=== PATIENT | male | born 1965 | race Caucasian/White ===

== ENCOUNTER 2018-03-31 12:00 | Outpatient (RCR) | payer OTHER, SELFPAY ==
--- NOTE | 2018-03-19 08:49 | PT.OIE ---
Current Diagnoses Generalized abdominal pain (03/18/18) Provider Visit Care Team Role Provider Type Kermit Valle MD Attending Provider Physician Family Provider Primary Care Provider Specialty: Family Practice Address: [facility] [place], [address] Email: [email or web address] Physical Therapy Initial Evaluation PT-OP-A Visit Information Start: 03/18/18 09:13 Freq: Status: Active Protocol: Document 03/18/18 16:53 [facility] (Rec: 03/18/18 17:15 [facility] [email or web address]) Out-Patient Physical Therapy Visit Information Visit Information Visit Type Initial Evaluation Visit Start Time 13:00 Visit Stop Time 14:00 Total Visit Minutes 60 Visit Number PT-OP-B Current Condition Start: 03/18/18 09:13 Freq: Status: Active Protocol: Document 03/18/18 16:53 [facility] (Rec: 03/18/18 17:15 [facility] [email or web address]) Current Condition History of Current Condition Onset Date 3 months ago History of Current Condition Pt reports she was working at home on his hands and knees and stood up and got a sharp pain into L groin and had to rest for about 1 week. He started to get better, but then strained it again last week when he was off work and going up and down his speed boat ladder. Pt saw MD and MD said no hernia & just a muscle strain. Pt has hx of LBP for forever and cannot walk any long distance d/t back pain. Pt hs hx of R hip pain also and he reports his groin pain sometimes goes into his abdomen area by L hip flexor. Treatment Goals Patient/Caregiver Goals Return to work without pain, dec pain PT-OP-C Subjective Start: 03/18/18 09:13 Freq: Status: Active Protocol: Document 03/18/18 16:53 [facility] (Rec: 03/18/18 17:15 [facility] [email or web address]) Patient Questionnaires Lower Extremity Functional Scale LEFS Score 42 LEFS Impairment 40 to 59% Impaired (Score 32- 47) OP-PT Pain Assessment Location Left Groin Intensity 6 Scale Used Numeric (1 - 10) Description Sharp Throbbing Frequency Frequent Pain Duration relieves with stopping movement Pain Aggravating Factors Activity Lifting Other Pain Aggravating Factors twist when walking, push leg in, moving wrong way, in/out car Pain Alleviating Factors Heat Sitting PT-OP-E Functional Tests Start: 03/18/18 09:13 Freq: Status: Active Protocol: Document 03/18/18 16:53 [facility] (Rec: 03/18/18 17:15 [facility] [email or web address]) Functional Tests Squat Test Score no pain with squat PT-OP-F Manual Assessment Start: 03/18/18 09:13 Freq: Status: Active Protocol: Document 03/18/18 16:53 [facility] (Rec: 03/18/18 17:15 [facility] [email or web address]) Manual Assessments Soft Tissue Assessment Soft Tissue Mobility Assessment tigthness/tenderness in iliacus & adductors Joint Mobility Assessment Joint Mobility Assessment Pt is elevated R iliac crest & greater trochanter & PSIS is post PT-OP-J Posture/Palpation/Skin Start: 03/18/18 09:13 Freq: Status: Active Protocol: Document 03/18/18 16:53 [facility] (Rec: 03/18/18 17:15 [facility] [email or web address]) Posture Evaluation Vineet Postural Classification System Vineet Postural Classifications Anterior/Posterior PT-OP-K Range of Motion Start: 03/18/18 09:13 Freq: Status: Active Protocol: Document 03/18/18 16:53 [facility] (Rec: 03/18/18 17:15 [facility] [email or web address]) Hip Goniometric Range of Motion Hip Measured in Degrees Right Active Testing Position Supine Flexion w/Knee Flexed 101 Abduction 35 Left Active Testing Position Supine Flexion w/Knee Flexed 90 Abduction 24 PT-OP-L Special Tests Start: 03/18/18 09:13 Freq: Status: Active Protocol: Document 03/18/18 16:53 [facility] (Rec: 03/18/18 17:15 [facility] [email or web address]) Special Tests Lumbar Spine Special Tests Straight Leg Raise Test Results neg PT-OP-M Strength Start: 03/18/18 09:13 Freq: Status: Active Protocol: Document 03/18/18 16:53 [facility] (Rec: 03/18/18 17:15 [facility] [email or web address]) Hip Strength Hip Manual Muscle Testing Right Flexion (L2) 5 Normal Extension (S1) 4- Good- Abduction 5 Normal Adduction 4 Good External Rotation 5 Normal Internal Rotation 5 Normal Comments Knee and ankle WNL B; pain in L groin with add Left Flexion (L2) 4+ Good+ Extension (S1) 3+ Fair+ Abduction 5 Normal Adduction 3- Fair- External Rotation 4- Good- Internal Rotation 3+ Fair+ Comments pain with IR, ER& add PT-OP-Q Treatments Start: 03/18/18 09:13 Freq: Status: Active Protocol: Document 03/18/18 16:53 [facility] (Rec: 03/18/18 17:15 [facility] [email or web address]) Therapeutic Exercises Supine Exercises 3 Supine Exercise Name bridge Reps/Minutes 10 Comments cueing for breathing 2 Supine Exercise Name pelvic tilt Reps/Minutes 5 1 Supine Exercise Name Julián hip rotation in hooklying (neutral & abd IR/ER ) Reps/Minutes 10 Standing Exercises 1 Standing Exercise Name hip flexor stretch Side bilateral PT-OP-R Modalities Start: 03/18/18 09:13 Freq: Status: Active Protocol: Document 03/18/18 16:53 [facility] (Rec: 03/18/18 17:15 [facility] [email or web address]) Hot Pack/Cold Pack Treatment Hot Pack Location L hip Patient Position Supine Treatment Duration (minutes) 15 PT-OP-T Assessment and Plan Start: 03/18/18 09:13 Freq: Status: Active Protocol: Document 03/18/18 16:53 [facility] (Rec: 03/19/18 08:49 [facility] [email or web address]) Physical Therapy Assessment Rehab Potential Rehabilitation Potential Good Evaluation Complexity Number of Personal Factors/Comorbidities 3 or More Number of Body Systems Impaired 4 or More Clinical Presentation at Evaluation Evolving Impairments Impairments Functional Activities Functional Mobility Gait Pain Posture ROM Soft Tissue Mobility Strength Goals Four Impairment strength Short Term Goal (STG) Indep HEP STG Duration 04/18/18 Nursing Home Goal (LTG) Improve strength to 5/5 to allow pt to return to normal functional tasks. LTG Duration 05/19/18 Three Impairment LEFS Nursing Home Goal (LTG) 70/80 to show functional improvement LTG Duration 05/19/18 Two Impairment working Short Term Goal (STG) Pt will be able to return to work with min pain during day no greater than 3/10. STG Duration 04/18/18 Nursing Home Goal (LTG) Pt will be able to work without c/o pain. LTG Duration 05/19/18 One Impairment pain Nursing Home Goal (LTG) 0/10 in groin area LTG Duration 05/19/18 Assessment Summary Assessment Pt presents with L adductor/ hip flexor strain with pain on palpation of these muscles. Pt also has uneven iliac crest & SI joints, which likely contributes to this pain with possible pubic symphisis shifting (this was not assessed today). Physical Therapy Plan Frequency and Duration Frequency of Treatment 2x/Week Duration of Treatment 2 months Plan of Care Start Date 03/18/18 Plan of Care End Date 05/19/18 Therapeutic Interventions Therapeutic Interventions Aquatic Therapy Balance Training Gait Training Home Exercise Program Joint Mobilizations Manual Therapy Soft Tissue Mobilization Taping Therapeutic Exercises Modalities Cold Pack/Ice Massage Electric Stimulation Hot Packs Ultrasound Next Visit Focus/Plan Next Note Type Treatment Note Next Visit Plan SI mobs, STM to adductors & iliacus, assess pubic symphysis, core stability exercises
--- NOTE | 2018-03-19 08:49 | PT.OPPOC ---
Current Diagnoses Generalized abdominal pain (03/18/18) Provider Visit Care Team Role Provider Type Kermit Valle MD Attending Provider Physician Family Provider Primary Care Provider Specialty: Family Practice [place], [address] Email: [email or web address] Plan Of Care PT-OP-T Assessment and Plan Start: 03/18/18 09:13 Freq: Status: Active Protocol: Document 03/18/18 16:53 [facility] (Rec: 03/19/18 08:49 [facility] [email or web address]) Physical Therapy Assessment Rehab Potential Rehabilitation Potential Good Evaluation Complexity Number of Personal Factors/Comorbidities 3 or More Number of Body Systems Impaired 4 or More Clinical Presentation at Evaluation Evolving Impairments Impairments Functional Activities Functional Mobility Gait Pain Posture ROM Soft Tissue Mobility Strength Goals Four Impairment strength Short Term Goal (STG) Indep HEP STG Duration 04/18/18 [facility] Goal (LTG) Improve strength to 5/5 to allow pt to return to normal functional tasks. LTG Duration 05/19/18 Three Impairment LEFS Mechanical Specialist Goal (LTG) 70/80 to show functional improvement LTG Duration 05/19/18 Two Impairment working Short Term Goal (STG) Pt will be able to return to work with min pain during day no greater than 3/10. STG Duration 04/18/18 [facility] Goal (LTG) Pt will be able to work without c/o pain. LTG Duration 05/19/18 One Impairment pain [facility] Goal (LTG) 0/10 in groin area LTG Duration 05/19/18 Assessment Summary Assessment Pt presents with L adductor/ hip flexor strain with pain on palpation of these muscles. Pt also has uneven iliac crest & SI joints, which likely contributes to this pain with possible pubic symphisis shifting (this was not assessed today). Physical Therapy Plan Frequency and Duration Frequency of Treatment 2x/Week Duration of Treatment 2 months Plan of Care Start Date 03/18/18 Plan of Care End Date 05/19/18 Therapeutic Interventions Therapeutic Interventions Aquatic Therapy Balance Training Gait Training Home Exercise Program Joint Mobilizations Manual Therapy Soft Tissue Mobilization Taping Therapeutic Exercises Modalities Cold Pack/Ice Massage Electric Stimulation Hot Packs Ultrasound Next Visit Focus/Plan Next Note Type Treatment Note Next Visit Plan SI mobs, STM to adductors & iliacus, assess pubic symphysis, core stability exercises Plan of Care Dates Plan of Care Start Date 03/18/18 Plan of Care End Date 05/19/18 Please Sign and Return: I have reviewed this Plan of Care and certify that the skilled therapy services above are required to meet the patient?s needs. Physician Signature Date Printed Name and Credentials Clinical Instructor Signature Printed Name and Credentials
--- NOTE | 2018-03-24 15:15 | PT.OTN ---
Current Diagnoses Generalized abdominal pain (03/24/18) Physical Therapy Treatment Note PT-OP-A Visit Information Start: 03/18/18 09:13 Freq: Status: Active Protocol: Document 03/24/18 15:15 [facility] (Rec: 03/25/18 09:34 [facility] [email or web address]) Out-Patient Physical Therapy Visit Information Visit Information Visit Type Treatment Note Visit Start Time 14:30 Visit Stop Time 15:15 Total Visit Minutes 45 Visit Number 270 Number of LUMBER LOADER Visits 0 Evaluation Information Evaluation Date 03/18/18 PT-OP-B Current Condition Start: 03/18/18 09:13 Freq: Status: Active Protocol: Document 03/18/18 16:53 [facility] (Rec: 03/18/18 17:15 [facility] [email or web address]) Current Condition History of Current Condition Onset Date 3 months ago History of Current Condition Pt reports she was working at home on his hands and knees and stood up and got a sharp pain into L groin and had to rest for about 1 week. He started to get better, but then strained it again last week when he was off work and going up and down his speed boat ladder. Pt saw MD and MD said no hernia & just a muscle strain. Pt has hx of LBP for forever and cannot walk any long distance d/t back pain. Pt hs hx of R hip pain also and he reports his groin pain sometimes goes into his abdomen area by L hip flexor. Treatment Goals Patient/Caregiver Goals Return to work without pain, dec pain PT-OP-C Subjective Start: 03/18/18 09:13 Freq: Status: Active Protocol: Document 03/24/18 15:15 [facility] (Rec: 03/25/18 09:34 [facility] [email or web address]) OP-PT Subjective Patient Comments Patient Comments Pt notes that he felt a little better after previous session . He is doing his HEP and heat at home. Patient Reported Progress Improving PT-OP-E Functional Tests Start: 03/18/18 09:13 Freq: Status: Active Protocol: Document 03/18/18 16:53 [facility] (Rec: 03/18/18 17:15 [facility] [email or web address]) Functional Tests Squat Test Score no pain with squat PT-OP-F Manual Assessment Start: 03/18/18 09:13 Freq: Status: Active Protocol: Document 03/24/18 15:15 [facility] (Rec: 03/25/18 09:34 [facility] [email or web address]) Manual Assessments Other Manual Assessments Other Manual Assessments R superior and posterior R ASIS PT-OP-J Posture/Palpation/Skin Start: 03/18/18 09:13 Freq: Status: Active Protocol: Document 03/18/18 16:53 [facility] (Rec: 03/18/18 17:15 [facility] [email or web address]) Posture Evaluation Vineet Postural Classification System Vineet Postural Classifications Anterior/Posterior PT-OP-K Range of Motion Start: 03/18/18 09:13 Freq: Status: Active Protocol: Document 03/18/18 16:53 [facility] (Rec: 03/18/18 17:15 [facility] [email or web address]) Hip Goniometric Range of Motion Hip Measured in Degrees Right Active Testing Position Supine Flexion w/Knee Flexed 101 Abduction 35 Left Active Testing Position Supine Flexion w/Knee Flexed 90 Abduction 24 PT-OP-L Special Tests Start: 03/18/18 09:13 Freq: Status: Active Protocol: Document 03/18/18 16:53 [facility] (Rec: 03/18/18 17:15 [facility] [email or web address]) Special Tests Lumbar Spine Special Tests Straight Leg Raise Test Results neg PT-OP-M Strength Start: 03/18/18 09:13 Freq: Status: Active Protocol: Document 03/18/18 16:53 [facility] (Rec: 03/18/18 17:15 [facility] [email or web address]) Hip Strength Hip Manual Muscle Testing Right Flexion (L2) 5 Normal Extension (S1) 4- Good- Abduction 5 Normal Adduction 4 Good External Rotation 5 Normal Internal Rotation 5 Normal Comments Knee and ankle WNL B; pain in L groin with add Left Flexion (L2) 4+ Good+ Extension (S1) 3+ Fair+ Abduction 5 Normal Adduction 3- Fair- External Rotation 4- Good- Internal Rotation 3+ Fair+ Comments pain with IR, ER& add PT-OP-Q Treatments Start: 03/18/18 09:13 Freq: Status: Active Protocol: Document 03/24/18 15:15 [facility] (Rec: 03/25/18 09:34 [facility] [email or web address]) Therapeutic Exercises Supine Exercises 3 Supine Exercise Name bridge Reps/Minutes 10 Comments cueing for breathing 2 Supine Exercise Name pelvic tilt Reps/Minutes 5 1 Supine Exercise Name Feldenkris hip rotation in hooklying (neutral & abd IR/ER ) Reps/Minutes 10 Sidelying Exercises 1 Sidelying Exercise Name claheldarvin Reps/Minutes 1x10 Standing Exercises 1 Standing Exercise Name hip flexor stretch Side bilateral Manual Therapy Treatment Soft Tissue Mobilization 2 Body Location L adductors Mobilization Type Sustained Pressure Intensity/Depth Deep Body Position Supine Comments 10 min 1 Body Location L psoas Mobilization Type Strumming Intensity/Depth Deep Body Position Supine Comments 10 min Manual Techniques 1 Type MET to correct superior and posterior R ASIS Comments 5 min Self-Care/Home Management Treatment Education Patient Education Home Exercise Program Other Education handout provided, added benitahells PT-OP-R Modalities Start: 03/18/18 09:13 Freq: Status: Active Protocol: Document 03/18/18 16:53 [facility] (Rec: 03/18/18 17:15 [facility] [email or web address]) Hot Pack/Cold Pack Treatment Hot Pack Location L hip Patient Position Supine Treatment Duration (minutes) 15 PT-OP-T Assessment and Plan Start: 03/18/18 09:13 Freq: Status: Active Protocol: Document 03/24/18 15:15 [facility] (Rec: 03/25/18 09:34 [facility] [email or web address]) Physical Therapy Assessment Assessment Summary Assessment Pt with less tension noted in adductors on the L after manual therapy, able to achieve appropriate end feel for L hip ER. Pt requires cuing for breathing during exercises. Physical Therapy Plan Frequency and Duration Frequency of Treatment 2x/Week Duration of Treatment 2 months Plan of Care Start Date 03/18/18 Plan of Care End Date 05/19/18 Next Visit Focus/Plan Next Note Type Treatment Note Next Visit Plan SI mobs, assess pubic symphysis, core stability exercises
--- NOTE | 2018-03-26 12:48 | PT.OTN ---
Current Diagnoses Generalized abdominal pain (03/26/18) Physical Therapy Treatment Note PT-OP-A Visit Information Start: 03/18/18 09:13 Freq: Status: Active Protocol: Document 03/26/18 12:48 [facility] (Rec: 03/26/18 17:02 [facility] [email or web address]) Out-Patient Physical Therapy Visit Information Visit Information Visit Type Treatment Note Visit Note late 10 min Visit Start Time 12:10 Visit Stop Time 12:48 Total Visit Minutes 38 Visit Number 3 Number of RESTAURANT AREA MANAGER Visits 0 Evaluation Information Evaluation Date 03/18/18 PT-OP-B Current Condition Start: 03/18/18 09:13 Freq: Status: Active Protocol: Document 03/18/18 16:53 [facility] (Rec: 03/18/18 17:15 [facility] [email or web address]) Current Condition History of Current Condition Onset Date 3 months ago History of Current Condition Pt reports she was working at home on his hands and knees and stood up and got a sharp pain into L groin and had to rest for about 1 week. He started to get better, but then strained it again last week when he was off work and going up and down his speed boat ladder. Pt saw MD and MD said no hernia & just a muscle strain. Pt has hx of LBP for forever and cannot walk any long distance d/t back pain. Pt hs hx of R hip pain also and he reports his groin pain sometimes goes into his abdomen area by L hip flexor. Treatment Goals Patient/Caregiver Goals Return to work without pain, dec pain PT-OP-C Subjective Start: 03/18/18 09:13 Freq: Status: Active Protocol: Document 03/26/18 12:48 [facility] (Rec: 03/26/18 17:02 [facility] [email or web address]) OP-PT Subjective Patient Comments Patient Comments Pt continues to feel a little better, but still doesn't think he is ready to go back to work. PT-OP-E Functional Tests Start: 03/18/18 09:13 Freq: Status: Active Protocol: Document 03/18/18 16:53 [facility] (Rec: 03/18/18 17:15 [facility] [email or web address]) Functional Tests Squat Test Score no pain with squat PT-OP-F Manual Assessment Start: 03/18/18 09:13 Freq: Status: Active Protocol: Document 03/24/18 15:15 [facility] (Rec: 07/19/18 09:34 [facility] [email or web address]) Manual Assessments Other Manual Assessments Other Manual Assessments R superior and posterior R ASIS PT-OP-J Posture/Palpation/Skin Start: 03/18/18 09:13 Freq: Status: Active Protocol: Document 03/18/18 16:53 [facility] (Rec: 03/18/18 17:15 [facility] [email or web address]) Posture Evaluation Vineet Postural Classification System Vineet Postural Classifications Anterior/Posterior PT-OP-K Range of Motion Start: 03/18/18 09:13 Freq: Status: Active Protocol: Document 03/18/18 16:53 [facility] (Rec: 03/18/18 17:15 [facility] [email or web address]) Hip Goniometric Range of Motion Hip Measured in Degrees Right Active Testing Position Supine Flexion w/Knee Flexed 101 Abduction 35 Left Active Testing Position Supine Flexion w/Knee Flexed 90 Abduction 24 PT-OP-L Special Tests Start: 03/18/18 09:13 Freq: Status: Active Protocol: Document 03/18/18 16:53 [facility] (Rec: 03/18/18 17:15 [facility] [email or web address]) Special Tests Lumbar Spine Special Tests Straight Leg Raise Test Results neg PT-OP-M Strength Start: 03/18/18 09:13 Freq: Status: Active Protocol: Document 03/18/18 16:53 [facility] (Rec: 03/18/18 17:15 [facility] [email or web address]) Hip Strength Hip Manual Muscle Testing Right Flexion (L2) 5 Normal Extension (S1) 4- Good- Abduction 5 Normal Adduction 4 Good External Rotation 5 Normal Internal Rotation 5 Normal Comments Knee and ankle WNL B; pain in L groin with add Left Flexion (L2) 4+ Good+ Extension (S1) 3+ Fair+ Abduction 5 Normal Adduction 3- Fair- External Rotation 4- Good- Internal Rotation 3+ Fair+ Comments pain with IR, ER& add PT-OP-Q Treatments Start: 03/18/18 09:13 Freq: Status: Active Protocol: Document 03/26/18 12:48 [facility] (Rec: 03/26/18 17:02 [facility] [email or web address]) Therapeutic Exercises Supine Exercises 1 Supine Exercise Name Jamilaclarymaya hip rotation in hooklying (neutral & abd IR/ER ) Reps/Minutes 10 Manual Therapy Treatment Soft Tissue Mobilization 2 Body Location L adductors Mobilization Type Sustained Pressure Intensity/Depth Deep Body Position Supine Comments 10 min 1 Body Location L iliacus Mobilization Type Strumming Intensity/Depth Deep Body Position Supine Comments 10 min Manual Techniques 1 Type MET to correct superior and posterior R ASIS Comments 5 min PT-OP-R Modalities Start: 03/18/18 09:13 Freq: Status: Active Protocol: Document 03/26/18 12:48 [facility] (Rec: 03/26/18 17:02 [facility] [email or web address]) Hot Pack/Cold Pack Treatment Cold Pack Location L groin Patient Position Hooklying Treatment Duration (minutes) 10 PT-OP-T Assessment and Plan Start: 03/18/18 09:13 Freq: Status: Active Protocol: Document 03/26/18 12:48 [facility] (Rec: 03/26/18 17:02 [facility] [email or web address]) Physical Therapy Assessment Assessment Summary Assessment Pt 10 minutes late to session. Pt continues to respond well to manual therapy, with less tension and pain post- treatment. Physical Therapy Plan Frequency and Duration Frequency of Treatment 2x/Week Duration of Treatment 2 months Plan of Care Start Date 03/18/18 Plan of Care End Date 05/19/18 Next Visit Focus/Plan Next Note Type Treatment Note Next Visit Plan SI mobs, core stability.
--- NOTE | 2018-03-31 12:47 | PT.OTN ---
Current Diagnoses Generalized abdominal pain (03/31/18) Physical Therapy Treatment Note PT-OP-A Visit Information Start: 03/18/18 09:13 Freq: Status: Active Protocol: Document 03/31/18 12:47 [facility] (Rec: 03/31/18 13:43 [facility] [email or web address]) Out-Patient Physical Therapy Visit Information Visit Information Visit Type Treatment Note Visit Note late 10 min Visit Start Time 12:02 Visit Stop Time 12:47 Total Visit Minutes 45 Visit Number 4/70 Number of REGISTERED DENTAL ASSISTANT RDA Visits 0 Evaluation Information Evaluation Date 03/18/18 PT-OP-B Current Condition Start: 03/18/18 09:13 Freq: Status: Active Protocol: Document 03/18/18 16:53 [facility] (Rec: 03/18/18 17:15 [facility] [email or web address]) Current Condition History of Current Condition Onset Date 3 months ago History of Current Condition Pt reports she was working at home on his hands and knees and stood up and got a sharp pain into L groin and had to rest for about 1 week. He started to get better, but then strained it again last week when he was off work and going up and down his speed boat ladder. Pt saw MD and MD said no hernia & just a muscle strain. Pt has hx of LBP for forever and cannot walk any long distance d/t back pain. Pt hs hx of R hip pain also and he reports his groin pain sometimes goes into his abdomen area by L hip flexor. Treatment Goals Patient/Caregiver Goals Return to work without pain, dec pain PT-OP-C Subjective Start: 03/18/18 09:13 Freq: Status: Active Protocol: Document 03/31/18 12:47 [facility] (Rec: 03/31/18 13:43 [facility] [email or web address]) OP-PT Subjective Patient Comments Patient Comments Pt notes he feels like he is improving, he may go back to work next week. PT-OP-E Functional Tests Start: 03/18/18 09:13 Freq: Status: Active Protocol: Document 03/18/18 16:53 [facility] (Rec: 03/18/18 17:15 [facility] [email or web address]) Functional Tests Squat Test Score no pain with squat PT-OP-F Manual Assessment Start: 03/18/18 09:13 Freq: Status: Active Protocol: Document 03/24/18 15:15 [facility] (Rec: 03/25/18 09:34 [facility] [email or web address]) Manual Assessments Other Manual Assessments Other Manual Assessments R superior and posterior R ASIS PT-OP-J Posture/Palpation/Skin Start: 03/18/18 09:13 Freq: Status: Active Protocol: Document 03/18/18 16:53 [facility] (Rec: 03/18/18 17:15 [facility] [email or web address]) Posture Evaluation Vineet Postural Classification System Vineet Postural Classifications Anterior/Posterior PT-OP-K Range of Motion Start: 03/18/18 09:13 Freq: Status: Active Protocol: Document 03/18/18 16:53 [facility] (Rec: 03/18/18 17:15 [facility] [email or web address]) Hip Goniometric Range of Motion Hip Measured in Degrees Right Active Testing Position Supine Flexion w/Knee Flexed 101 Abduction 35 Left Active Testing Position Supine Flexion w/Knee Flexed 90 Abduction 24 PT-OP-L Special Tests Start: 03/18/18 09:13 Freq: Status: Active Protocol: Document 03/18/18 16:53 [facility] (Rec: 03/18/18 17:15 [facility] [email or web address]) Special Tests Lumbar Spine Special Tests Straight Leg Raise Test Results neg PT-OP-M Strength Start: 03/18/18 09:13 Freq: Status: Active Protocol: Document 03/18/18 16:53 [facility] (Rec: 03/18/18 17:15 [facility] [email or web address]) Hip Strength Hip Manual Muscle Testing Right Flexion (L2) 5 Normal Extension (S1) 4- Good- Abduction 5 Normal Adduction 4 Good External Rotation 5 Normal Internal Rotation 5 Normal Comments Knee and ankle WNL B; pain in L groin with add Left Flexion (L2) 4+ Good+ Extension (S1) 3+ Fair+ Abduction 5 Normal Adduction 3- Fair- External Rotation 4- Good- Internal Rotation 3+ Fair+ Comments pain with IR, ER& add PT-OP-Q Treatments Start: 03/18/18 09:13 Freq: Status: Active Protocol: Document 03/31/18 12:47 [facility] (Rec: 03/31/18 13:43 [facility] [email or web address]) Therapeutic Exercises Supine Exercises 4 Supine Exercise Name TrAb activation with hip flexion (knees bent) Side bilateral Manual Therapy Treatment Soft Tissue Mobilization 2 Body Location L adductors Mobilization Type Sustained Pressure Intensity/Depth Deep Body Position Supine Comments 14 min 1 Body Location L iliacus Mobilization Type Strumming Intensity/Depth Deep Body Position Supine Comments 11 min Manual Techniques 1 Type MET to correct superior and posterior R ASIS Comments 5 min PT-OP-R Modalities Start: 03/18/18 09:13 Freq: Status: Active Protocol: Document 03/31/18 12:47 [facility] (Rec: 03/31/18 13:43 [facility] [email or web address]) Hot Pack/Cold Pack Treatment Cold Pack Location L groin Patient Position Hooklying Treatment Duration (minutes) 10 PT-OP-T Assessment and Plan Start: 03/18/18 09:13 Freq: Status: Active Protocol: Document 03/31/18 12:47 [facility] (Rec: 03/31/18 13:43 [facility] [email or web address]) Physical Therapy Assessment Assessment Summary Assessment Pt tolerated light hip flexion activation this session, but unable to perform a SLR with LE straight without hip/groin discomfort on the L. Physical Therapy Plan Frequency and Duration Frequency of Treatment 2x/Week Duration of Treatment 2 months Plan of Care Start Date 03/18/18 Plan of Care End Date 05/19/18 Next Visit Focus/Plan Next Note Type Treatment Note Next Visit Plan core stabilization, gentle progression of strengthening.
--- NOTE | 2018-05-28 09:41 | PT.OPDS ---
Current Diagnoses Generalized abdominal pain (03/31/18) Provider Visit Care Team Role Provider Type Kermit Valle MD Attending Provider Physician Family Provider Primary Care Provider Specialty: Family Practice Address: [facility] [place], [address] Email: [email or web address] Number Visit Number Discharge Summary PT-OP-B Current Condition Start: 03/18/18 09:13 Freq: Status: Active Protocol: Document 03/18/18 16:53 [facility] (Rec: 03/18/18 17:15 [facility] [email or web address]) Current Condition History of Current Condition Onset Date 3 months ago History of Current Condition Pt reports she was working at home on his hands and knees and stood up and got a sharp pain into L groin and had to rest for about 1 week. He started to get better, but then strained it again last week when he was off work and going up and down his speed boat ladder. Pt saw MD and MD said no hernia & just a muscle strain. Pt has hx of LBP for forever and cannot walk any long distance d/t back pain. Pt hs hx of R hip pain also and he reports his groin pain sometimes goes into his abdomen area by L hip flexor. Treatment Goals Patient/Caregiver Goals Return to work without pain, dec pain PT-OP-C Subjective Start: 03/18/18 09:13 Freq: Status: Active Protocol: Document 03/31/18 12:47 [facility] (Rec: 03/31/18 13:43 [facility] [email or web address]) OP-PT Subjective Patient Comments Patient Comments Pt notes he feels like he is improving, he may go back to work next week. PT-OP-E Functional Tests Start: 03/18/18 09:13 Freq: Status: Active Protocol: Document 03/18/18 16:53 [facility] (Rec: 03/18/18 17:15 [facility] [email or web address]) Functional Tests Squat Test Score no pain with squat PT-OP-F Manual Assessment Start: 03/18/18 09:13 Freq: Status: Active Protocol: Document 03/24/18 15:15 [facility] (Rec: 03/25/18 09:34 [facility] [email or web address]) Manual Assessments Other Manual Assessments Other Manual Assessments R superior and posterior R ASIS PT-OP-J Posture/Palpation/Skin Start: 03/18/18 09:13 Freq: Status: Active Protocol: Document 03/18/18 16:53 [facility] (Rec: 03/18/18 17:15 [facility] [email or web address]) Posture Evaluation Vineet Postural Classification System Vineet Postural Classifications Anterior/Posterior PT-OP-K Range of Motion Start: 03/18/18 09:13 Freq: Status: Active Protocol: Document 03/18/18 16:53 [facility] (Rec: 03/18/18 17:15 [facility] [email or web address]) Hip Goniometric Range of Motion Hip Measured in Degrees Right Active Testing Position Supine Flexion w/Knee Flexed 101 Abduction 35 Left Active Testing Position Supine Flexion w/Knee Flexed 90 Abduction 24 PT-OP-L Special Tests Start: 03/18/18 09:13 Freq: Status: Active Protocol: Document 03/18/18 16:53 [facility] (Rec: 03/18/18 17:15 [facility] [email or web address]) Special Tests Lumbar Spine Special Tests Straight Leg Raise Test Results neg PT-OP-M Strength Start: 03/18/18 09:13 Freq: Status: Active Protocol: Document 03/18/18 16:53 [facility] (Rec: 03/18/18 17:15 [facility] [email or web address]) Hip Strength Hip Manual Muscle Testing Right Flexion (L2) 5 Normal Extension (S1) 4- Good- Abduction 5 Normal Adduction 4 Good External Rotation 5 Normal Internal Rotation 5 Normal Comments Knee and ankle WNL B; pain in L groin with add Left Flexion (L2) 4+ Good+ Extension (S1) 3+ Fair+ Abduction 5 Normal Adduction 3- Fair- External Rotation 4- Good- Internal Rotation 3+ Fair+ Comments pain with IR, ER& add PT-OP-T Assessment and Plan Start: 03/18/18 09:13 Freq: Status: Active Protocol: Document 05/28/18 09:40 [facility] (Rec: 05/28/18 09:41 [facility] [email or web address]) Physical Therapy Plan Discharge Physical Therapy Discharge Reasons Patient Request Discharge Comments Pt cancelled last visit and requested d/c from PT.
== END 2018-06-18 09:05 ==
LOC: PHYS 12:00
PROVIDERS: Family Provider Family Medicine; PCP Family Medicine; Visit Provider Family Medicine
DX: R10.84 Generalized abdominal pain (principal)
CPT/HCPCS: 97010; 97110; 97140; 97162

== ENCOUNTER → 2018-08-20 12:16 | Outpatient (CLI) | payer OTHER, SELFPAY ==
--- NOTE | 2018-08-20 | DI.RAD.S_ITS ---
PROCEDURE: XR LUMBAR SPINE 2-3V INDICATIONS: low back pain TECHNIQUE: 3 views of the lumbar spine were acquired. COMPARISON: None. FINDINGS: Bones: Mild T12 compression fracture. This is age-indeterminate. Mild L1 vertebral body height loss however also technically age-indeterminate. Remaining vertebral body heights preserved. Diffuse facet arthropathy. Diffuse endplate spurring and sclerosis. Disc spaces are relatively preserved Soft tissues: Overlying bowel gas pattern is normal. No suspicious soft tissue calcifications. IMPRESSION: Mild T12 and L1 compression fractures, technically age-indeterminate findings. Please correlate clinically. Facet arthropathy. Dictated by: Pradeep Juarez M.D. on 08/20/2018 at 13:13 Approved by: Pradeep Juarez M.D. on 08/20/2018 at 13:16
== END ==
PROVIDERS: Family Provider Family Medicine; PCP Family Medicine; Visit Provider Family Medicine
DX: M54.5 Low back pain (principal); M48.55XA Collapsed vertebra, not elsewhere classified, thoracolumbar region, initial encounter for fracture; M47.816 Spondylosis without myelopathy or radiculopathy, lumbar region
CPT/HCPCS: 72100